=== PATIENT | female | born 1935 | race Caucasian/White ===

== ENCOUNTER 2017-01-26 10:10 | Inpatient (IN) | payer MEDICARE, BC ==
[~2017-01-26] VITALS: Ht 160 cm; Wt 54.2 kg
[~2017-01-26 10:10] MED LIST: CALC-126 PO; CHOL200040 PO; HYDR500C PO; LETR2.5T PO; LEVO88TA4 PO; MULT1TAB9 PO
[2017-01-26 11:30] VITALS: BP 107/71
[2017-01-26] MEDS ORDERED: FURO-93 PO (11:42)
[2017-01-26] MEDS ORDERED: HYDR500C3 PO (11:42)
[2017-01-26] MEDS ORDERED: HYDR-3138 PO (11:42)
[2017-01-26] MEDS ORDERED: HYDROmorphone 1 MG/ML, 1ML IM PRN (13:00)
[2017-01-26] MEDS ORDERED: POLYETHYLENE GLYCOL 17 GM PACKET PO PRN (13:00)
[2017-01-26] MEDS ORDERED: DOCUSATE 100 MG CAPSULE PO PRN (13:00)
[2017-01-26] MEDS ORDERED: ACETAMINOPHEN 325 MG TABLET PO PRN (13:00)
[2017-01-26] MEDS ORDERED: ONDANSETRON 2MG/ML, 2ML IVP PRN (13:00)
[2017-01-26 14:37] VITALS: BP 108/73
[2017-01-26] MEDS: HYDROcodone/APAP 5/325 TABLET PO PRN ×3 (15:20→22:31)
[2017-01-26] MEDS: HEPARIN 5,000 UNITS/ML, 1ML SQ SCH ×2 (15:20→23:57)
[2017-01-26] MEDS: [UNRECOGNIZED DRUG - REMARK] XX SCH ×2 (16:00→21:00)
[2017-01-26 16:27] LABS: ASPARTATE AMINO TRANSFERASE 34 U/L (15-37); BLOOD UREA NITROGEN 14 mg/dL (7-18)
[2017-01-26 16:58] LABS: ANISOCYTOSIS 1+
[2017-01-26 16:59] LABS: POLYCHROMASIA 1+
[2017-01-26] MEDS ORDERED: FUROSEMIDE 20 MG/2 ML IV ONE (17:30)
[2017-01-26] MEDS ORDERED: POTASSIUM CHLORIDE 20 MEQ TAB.ER.PRT PO ONE (17:30)
[2017-01-26 18:21] VITALS: BP 111/76
[2017-01-26] MEDS: DOXYCYCLINE 100MG TABLET PO SCH (21:18)
[2017-01-27 02:13] VITALS: BP 121/78
[2017-01-27] MEDS: HYDROcodone/APAP 5/325 TABLET PO PRN ×3 (05:15→18:41)
[2017-01-27 05:30] LABS: ASPARTATE AMINO TRANSFERASE 28 U/L (15-37); BLOOD UREA NITROGEN 12 mg/dL (7-18)
[2017-01-27 07:59] VITALS: BP 108/78
[2017-01-27] MEDS: HEPARIN 5,000 UNITS/ML, 1ML SQ SCH ×2 (08:44→17:13)
[2017-01-27] MEDS: DOXYCYCLINE 100MG TABLET PO SCH (08:44)
[2017-01-27] MEDS: LEVOTHYROXINE 88 MCG TABLET PO SCH (08:44)
[2017-01-27] MEDS: [UNRECOGNIZED DRUG - REMARK] XX SCH (08:44)
[2017-01-27] MEDS ORDERED: CALCIUM/VITAMIN D3 250-125 TABLET PO SCH (09:00)
[2017-01-27] MEDS ORDERED: HYDROXYUREA 200 MG HOMEMEDPO SCH (09:00)
[2017-01-27] MEDS ORDERED: MULTIVITAMINS/MINERALS TABLET PO SCH (09:00)
[2017-01-27] MEDS ORDERED: CHOLECALCIFEROL 1,000 UNIT TABLET PO SCH (09:00)
[2017-01-27] MEDS ORDERED: HYDROXYUREA 500 MG CAPSULE PO SCH (09:00)
[2017-01-27] MEDS ORDERED: FUROSEMIDE 20 MG/2 ML IV SCH (12:30)
[2017-01-27] MEDS: FUROSEMIDE 20 MG/2 ML IV SCH ×2 (12:41→22:07)
[2017-01-27] MEDS: DOXYCYCLINE 100 MG in DEXTROSE 5% 250 ML IV SCH (13:45)
[2017-01-27 13:50] VITALS: BP 108/73
[2017-01-27 18:29] VITALS: BP 105/74
[2017-01-27] MEDS: HYDROXYUREA 500 MG CAPSULE PO SCH (21:51)
[2017-01-28 00:44] VITALS: BP 93/66
[2017-01-28] MEDS: HYDROcodone/APAP 5/325 TABLET PO PRN ×4 (00:48→19:56)
[2017-01-28] MEDS: DOXYCYCLINE 100 MG in DEXTROSE 5% 250 ML IV SCH ×2 (00:48→13:07)
[2017-01-28] MEDS: HEPARIN 5,000 UNITS/ML, 1ML SQ SCH ×3 (00:48→17:38)
[2017-01-28 04:53] LABS: BLOOD UREA NITROGEN 9 mg/dL (7-18)
[2017-01-28 04:57] LABS: ASPARTATE AMINO TRANSFERASE 25 U/L (15-37)
[2017-01-28 05:33] LABS: DIFF TOTAL CELLS COUNTED 100 CELL DIFF
[2017-01-28 05:35] LABS: VERIFY COUNTS? YES
[2017-01-28 05:36] LABS: ANISOCYTOSIS 1+; POIKILOCYTOSIS 1+
[2017-01-28 07:39] VITALS: BP 105/74
[2017-01-28] MEDS: FUROSEMIDE 20 MG/2 ML IV SCH ×2 (09:02→19:56)
[2017-01-28] MEDS: POTASSIUM CHLORIDE 20 MEQ TAB.ER.PRT PO SCH ×2 (09:03→17:39)
[2017-01-28] MEDS: LEVOTHYROXINE 88 MCG TABLET PO SCH (09:03)
[2017-01-28] MEDS: HYDROXYUREA 500 MG CAPSULE PO SCH ×2 (10:18→22:05)
[2017-01-28 13:39] VITALS: BP 92/65
[2017-01-28] MEDS ORDERED: POTASSIUM CHLORIDE 20 MEQ TAB.ER.PRT PO SCH (17:00)
[2017-01-28 19:37] VITALS: BP 95/63
[2017-01-29] MEDS: DOXYCYCLINE 100 MG in DEXTROSE 5% 250 ML IV SCH ×3 (01:23→23:47)
[2017-01-29] MEDS: HEPARIN 5,000 UNITS/ML, 1ML SQ SCH ×4 (01:24→23:47)
[2017-01-29] MEDS: HYDROcodone/APAP 5/325 TABLET PO PRN ×3 (01:39→15:20)
[2017-01-29 03:28] VITALS: BP 114/76
[2017-01-29 05:24] LABS: ASPARTATE AMINO TRANSFERASE 24 U/L (15-37); BLOOD UREA NITROGEN 8 mg/dL (7-18)
[2017-01-29 05:35] LABS: DIFF TOTAL CELLS COUNTED 100 CELL DIFF
[2017-01-29 05:38] LABS: ANISOCYTOSIS 1+; VERIFY COUNTS? YES
[2017-01-29 05:39] LABS: POLYCHROMASIA 1+
[2017-01-29 07:03] VITALS: BP 116/80
[2017-01-29] MEDS: LEVOTHYROXINE 88 MCG TABLET PO SCH (08:31)
[2017-01-29] MEDS: POTASSIUM CHLORIDE 20 MEQ TAB.ER.PRT PO SCH ×2 (08:31→15:20)
[2017-01-29] MEDS: FUROSEMIDE 20 MG/2 ML IV SCH ×2 (08:31→19:56)
[2017-01-29] MEDS: HYDROXYUREA 500 MG CAPSULE PO SCH ×2 (10:34→19:54)
[2017-01-29 15:25] VITALS: BP 133/84
[2017-01-29 19:21] VITALS: BP 90/63
[2017-01-30 01:23] VITALS: BP 91/63
[2017-01-30 04:16] LABS: BLOOD UREA NITROGEN 11 mg/dL (7-18)
[2017-01-30 04:19] LABS: ASPARTATE AMINO TRANSFERASE 22 U/L (15-37)
[2017-01-30 04:40] LABS: DIFF TOTAL CELLS COUNTED 100 CELL DIFF
[2017-01-30 04:42] LABS: VERIFY COUNTS? YES
[2017-01-30 04:43] LABS: ANISOCYTOSIS 1+; HYPOCHROMIA 1+; POLYCHROMASIA 1+
[2017-01-30 07:22] VITALS: BP 98/66
[2017-01-30] MEDS: POTASSIUM CHLORIDE 20 MEQ TAB.ER.PRT PO SCH ×2 (08:28→17:44)
[2017-01-30] MEDS: LEVOTHYROXINE 88 MCG TABLET PO SCH (08:28)
[2017-01-30] MEDS: FUROSEMIDE 20 MG/2 ML IV SCH ×2 (08:29→18:58)
[2017-01-30] MEDS: HEPARIN 5,000 UNITS/ML, 1ML SQ SCH ×2 (08:29→17:44)
[2017-01-30] MEDS: HYDROXYUREA 500 MG CAPSULE PO SCH ×2 (12:10→22:08)
[2017-01-30] MEDS: DOXYCYCLINE 100 MG in DEXTROSE 5% 250 ML IV SCH (13:57)
[2017-01-30 14:27] VITALS: BP 71/49
[2017-01-30 15:00] VITALS: BP 86/60
[2017-01-30] MEDS: HYDROcodone/APAP 5/325 TABLET PO PRN (17:44)
[2017-01-30 19:39] VITALS: BP 92/64
[2017-01-31] MEDS: DOXYCYCLINE 100 MG in DEXTROSE 5% 250 ML IV SCH ×2 (01:35→15:05)
[2017-01-31] MEDS: HEPARIN 5,000 UNITS/ML, 1ML SQ SCH ×3 (01:43→18:19)
[2017-01-31 01:48] VITALS: BP 102/72
[2017-01-31] MEDS ORDERED: CATHFLO-ALTEPLASE 2 MG/2 ML CATHFLUSH ONE (04:00)
[2017-01-31 05:14] LABS: BLOOD UREA NITROGEN 12 mg/dL (7-18)
[2017-01-31 06:02] LABS: DIFF TOTAL CELLS COUNTED 100 CELL DIFF
[2017-01-31 06:05] LABS: ANISOCYTOSIS 1+; VERIFY COUNTS? YES
[2017-01-31] MEDS ORDERED: MAGNESIUM SULFATE PMX 2GM/50ML 50 ML IV ONE (07:30)
[2017-01-31 07:45] VITALS: BP 117/75
[2017-01-31] MEDS: FUROSEMIDE 20 MG/2 ML IV SCH ×2 (11:03→20:12)
[2017-01-31] MEDS: POTASSIUM CHLORIDE 20 MEQ TAB.ER.PRT PO SCH ×2 (11:03→18:19)
[2017-01-31] MEDS: LEVOTHYROXINE 88 MCG TABLET PO SCH (11:03)
[2017-01-31] MEDS: HYDROXYUREA 500 MG CAPSULE PO SCH ×2 (11:05→21:23)
[2017-01-31 13:20] VITALS: BP 99/67
[2017-01-31] MEDS ORDERED: KETOROLAC 30 MG/1 ML IM STA (14:13)
[2017-01-31] MEDS: HYDROcodone/APAP 5/325 TABLET PO PRN (14:18)
[2017-01-31 18:54] VITALS: BP 91/61
[2017-02-01 01:24] VITALS: BP 108/73
[2017-02-01] MEDS: DOXYCYCLINE 100 MG in DEXTROSE 5% 250 ML IV SCH ×2 (01:47→13:50)
[2017-02-01] MEDS: HEPARIN 5,000 UNITS/ML, 1ML SQ SCH ×3 (01:51→17:13)
[2017-02-01 06:36] LABS: BLOOD UREA NITROGEN 11 mg/dL (7-18)
[2017-02-01 07:15] VITALS: BP 109/70
[2017-02-01] MEDS: FUROSEMIDE 20 MG/2 ML IV SCH ×2 (08:28→21:36)
[2017-02-01] MEDS: POTASSIUM CHLORIDE 20 MEQ TAB.ER.PRT PO SCH ×2 (08:28→17:13)
[2017-02-01] MEDS: LEVOTHYROXINE 88 MCG TABLET PO SCH (08:28)
[2017-02-01] MEDS: HYDROXYUREA 500 MG CAPSULE PO SCH ×2 (08:32→21:39)
[2017-02-01 14:20] VITALS: BP 106/74
[2017-02-01 19:41] VITALS: BP 105/74
[2017-02-02 01:03] VITALS: BP 90/64
[2017-02-02] MEDS: HEPARIN 5,000 UNITS/ML, 1ML SQ SCH ×3 (01:12→17:17)
[2017-02-02] MEDS: DOXYCYCLINE 100 MG in DEXTROSE 5% 250 ML IV SCH (01:12)
[2017-02-02 06:17] LABS: BLOOD UREA NITROGEN 14 mg/dL (7-18)
[2017-02-02 07:53] VITALS: BP 109/76
[2017-02-02] MEDS: LEVOTHYROXINE 88 MCG TABLET PO SCH (08:23)
[2017-02-02] MEDS: FUROSEMIDE 20 MG/2 ML IV SCH ×2 (08:23→20:10)
[2017-02-02] MEDS: POTASSIUM CHLORIDE 20 MEQ TAB.ER.PRT PO SCH ×2 (08:23→17:17)
[2017-02-02] MEDS: HYDROXYUREA 500 MG CAPSULE PO SCH ×2 (08:26→20:14)
[2017-02-02 13:17] VITALS: BP 101/66
[2017-02-02] MEDS: DOXYCYCLINE 100MG TABLET PO SCH (13:28)
[2017-02-02] MEDS ORDERED: DOXY100T PO (14:21)
[2017-02-02] MEDS ORDERED: FURO-93 PO (14:21)
[2017-02-02 20:16] VITALS: BP 100/68
[2017-02-03] MEDS: HEPARIN 5,000 UNITS/ML, 1ML SQ SCH ×2 (00:29→09:27)
[2017-02-03] MEDS: DOXYCYCLINE 100MG TABLET PO SCH (00:29)
[2017-02-03 02:41] VITALS: BP 113/79
[2017-02-03 07:08] VITALS: BP 111/78
[2017-02-03] MEDS: LEVOTHYROXINE 88 MCG TABLET PO SCH (08:03)
[2017-02-03] MEDS: POTASSIUM CHLORIDE 20 MEQ TAB.ER.PRT PO SCH (08:03)
[2017-02-03] MEDS: HYDROXYUREA 500 MG CAPSULE PO SCH (08:05)
[2017-02-03] MEDS: FUROSEMIDE 20 MG/2 ML IV SCH (08:05)
== END 2017-02-03 13:47 | disposition home health service (06) | DRG 291 ==
LOC: 5SO 10:44 → 3NW 01-30 15:40
PROVIDERS: ADMIT Internal Medicine; ATTEND Internal Medicine
PROC: 02HV33Z Insertion of Infusion Device into Superior Vena Cava, Percutaneous Approach (ICD-10-PCS; principal; 2017-01-26)
PROC: B548ZZA Ultrasonography of Superior Vena Cava, Guidance (ICD-10-PCS; 2017-01-26)
PROC: 0HBRXZZ Excision of Toe Nail, External Approach (ICD-10-PCS; 2017-01-27)
PROC: 0HBRXZZ Excision of Toe Nail, External Approach (ICD-10-PCS; 2017-01-27)
PROC: 0HBRXZZ Excision of Toe Nail, External Approach (ICD-10-PCS; 2017-01-27)
PROC: 0HBRXZZ Excision of Toe Nail, External Approach (ICD-10-PCS; 2017-01-27)
PROC: 0HBRXZZ Excision of Toe Nail, External Approach (ICD-10-PCS; 2017-01-27)
PROC: 0HBRXZZ Excision of Toe Nail, External Approach (ICD-10-PCS; 2017-01-27)
PROC: 0HBRXZZ Excision of Toe Nail, External Approach (ICD-10-PCS; 2017-01-27)
PROC: 0HBRXZZ Excision of Toe Nail, External Approach (ICD-10-PCS; 2017-01-27)
PROC: 0HBRXZZ Excision of Toe Nail, External Approach (ICD-10-PCS; 2017-01-27)
PROC: 0HBRXZZ Excision of Toe Nail, External Approach (ICD-10-PCS; 2017-01-27)
DX: I50.33 Acute on chronic diastolic (congestive) heart failure (principal); E43 Unspecified severe protein-calorie malnutrition; C78.7 Secondary malignant neoplasm of liver and intrahepatic bile duct; C79.51 Secondary malignant neoplasm of bone; C91.10 Chronic lymphocytic leukemia of B-cell type not having achieved remission; L03.115 Cellulitis of right lower limb; L03.116 Cellulitis of left lower limb; C50.919 Malignant neoplasm of unspecified site of unspecified female breast; D47.3 Essential (hemorrhagic) thrombocythemia; M81.0 Age-related osteoporosis without current pathological fracture; B35.1 Tinea unguium; E03.9 Hypothyroidism, unspecified; E87.6 Hypokalemia; I73.9 Peripheral vascular disease, unspecified; I89.0 Lymphedema, not elsewhere classified; R62.7 Adult failure to thrive; S81.801A Unspecified open wound, right lower leg, initial encounter; W19.XXXA Unspecified fall, initial encounter; Z66 Do not resuscitate; Y93.89 Activity, other specified; Y92.89 Other specified places as the place of occurrence of the external cause; Y99.8 Other external cause status; Z80.3 Family history of malignant neoplasm of breast; Z80.42 Family history of malignant neoplasm of prostate; Z80.8 Family history of malignant neoplasm of other organs or systems; Z87.891 Personal history of nicotine dependence; Z68.22 Body mass index [BMI] 22.0-22.9, adult; Z90.11 Acquired absence of right breast and nipple; Z90.722 Acquired absence of ovaries, bilateral; Z88.5 Allergy status to narcotic agent; Z88.2 Allergy status to sulfonamides; Z88.8 Allergy status to other drugs, medicaments and biological substances; Z88.1 Allergy status to other antibiotic agents; Z91.041 Radiographic dye allergy status; Z79.899 Other long term (current) drug therapy
CPT/HCPCS: 36415; 36569; 76937; 77001; 80048; 80053; 83735; 85025; 87070; 87205; J1170; J1644; J1885; J2405; J2997; J7060; C1751; J1940; J3475

== ENCOUNTER 2019-05-03 21:48 | Inpatient (IN) | payer MEDICARE, BC ==
[~2019-05-03] VITALS: Ht 157.5 cm; Wt 61.7 kg
[~2019-05-03 21:48] MED LIST changes: +DOXY100T PO; +FURO-93 PO; +HYDR-3237 PO; +HYDR500C3 PO
--- NOTE | 2019-05-03 23:15 | NUR ---
LABS DRAWN, ABG DRAWN. BLOOD CULTURES DRAWN, ONE DRAWN OFF PICC PER ERP OKAY. PT RESTING CALMLY IN BED AT THIS TIME. NO COMPLAINTS CURRENTLY. FAMILY AT BEDSIDE. PT REMAINS ON OPTIFLOW AT CHARTED SETTINGS. ABLE TO UPDATE PT MED REC. WILL CONTINUE TO MONITOR. BILAT BEDRAILS UP.
[2019-05-03 23:19] LABS: MEAN CORPUSCULAR HEMOGLOBIN 36.7 pg (27.0-34.8); MEAN CORPUSCULAR HGB CONC 32.7 g/dL (32.4-35.8); MEAN CORPUSCULAR VOLUME 112.1 fL (80-100); MEAN PLATELET VOLUME 7.1 fL (7.4-10.4); PLATELET COUNT 430 x10^3/uL (130-400); RED BLOOD COUNT 3.23 x10^6/uL (3.82-5.3); RED CELL DISTRIBUTION WIDTH 17.7 % (9.6-15.2)
[2019-05-03] MEDS ORDERED: NOREPINEPHRINE 4 MG in SODIUM CHLORIDE 0.9% 246 ML IV PRN (23:30)
[2019-05-03 23:33] LABS: ALBUMIN 1.7 g/dL (3.4-5.0); ANION GAP 10 mmol/L (5-15); CALCIUM 7.6 mg/dL (8.5-10.1); CHLORIDE 112 mmol/L (98-107)
[2019-05-03 23:37] LABS: ALKALINE PHOSPHATASE 399 U/L (45-117); TOTAL PROTEIN 5.5 g/dL (6.4-8.2); TROPONIN I 0.034 ng/mL (0.000-0.045)
[2019-05-03 23:38] LABS: ALANINE AMINOTRANSFERASE 101 U/L (12-78)
[2019-05-04] LABS: BASOPHILS # (AUTO) 0.06 x10^3/uL (0-0.1); BASOPHILS % (AUTO) 0 % (0-1); EOSINOPHILS # (AUTO) 0.01 x10^3/uL (0-0.4); EOSINOPHILS % (AUTO) 0 % (1-7); LYMPHOCYTES % (AUTO) 27 % (22-44); MD SCAN; MONOCYTES # (AUTO) 1.08 x10^3/uL (0.2-0.8); MONOCYTES % (AUTO) 4 % (2-9); NEUTROPHILS # (AUTO) 20.63 x10^3/uL (1.8-6.8); NEUTROPHILS % (AUTO) 69 % (42-75)
[2019-05-04] MEDS ORDERED: OMNIPAQUE 350 MG/ML, 100ML BOTTLE ONE (00:38)
--- NOTE | 2019-05-04 00:49 | NUR ---
PT BACK FROM CT. TOLERATED WELL. PT RESTING CALMLY IN BED AT THIS TIME. NO STATED NEEDS. BILAT BEDRAILS UP. PT BP STABLE ON ORDERED PRESSOR, SEE CHARTED. WILL CONTINUE TO MONITOR.
--- NOTE | 2019-05-04 01:42 | NUR ---
PT RESTING CALMLY IN BED, SEE CHARTED VITALS. NO STATED NEEDS AT THIS TIME. ERP HAS UPDATED PT AND FAMILY WITH CT RESULTS AND PLAN
--- NOTE | 2019-05-04 02:18 | NUR ---
AWAITING HOSPITALIST ORDERS. PT RESTING CALMLY IN BED DOZING OFF AND ON. WOUND CARE DONE ON LEFT WRIST SKIN TEAR. NO C/O PAIN. RT HAS BEEN IN TO CHECK ON PT. PT REPOSITIONED FOR COMFORT. WILL CONTINUE TO MONITOR.
--- NOTE | 2019-05-04 02:30 | NUR ---
HOSPITALIST AT BEDSIDE
--- NOTE | 2019-05-04 03:15 | NUR ---
REPORT TO JOSE MILLER.
[2019-05-04 03:30] VITALS: BP 82/52
[2019-05-04 04:24] VITALS: BP 88/50
[2019-05-04 04:49] LABS: MICROSCOPIC NOT IND
[2019-05-04 04:53] LABS: CULTURE INDICATED? NO
[2019-05-04] MEDS ORDERED: ACETAMINOPHEN 325 MG TABLET PO PRN (05:30)
[2019-05-04] MEDS ORDERED: BISACODYL 10 MG SUPP PR PRN (05:30)
[2019-05-04] MEDS ORDERED: ZOSYN PER PHARMACY MC PRN (05:30)
[2019-05-04] MEDS ORDERED: ONDANSETRON 2MG/ML, 2ML IVPush PRN (05:30)
[2019-05-04] MEDS ORDERED: VANCOMYCIN PER PHARMACY MC PRN (05:30)
[2019-05-04] MEDS ORDERED: POLYETHYLENE GLYCOL 17 GM PACKET PO PRN (05:30)
[2019-05-04] MEDS ORDERED: HYDROmorphone 2 MG/ML, 1ML IVPush PRN (05:30)
[2019-05-04] MEDS ORDERED: PANTOPRAZOLE 40 MG IV ONE (05:45)
[2019-05-04] MEDS: PANTOPRAZOLE 40 MG IV IV SCH (05:48)
[2019-05-04] MEDS: VANCOMYCIN 1,200 MG in SODIUM CHLORIDE 0.9% 250 ML IV SCH (06:13)
[2019-05-04] MEDS ORDERED: PHARMACOKINETIC MONITORING MC PRN (06:30)
[2019-05-04] MEDS ORDERED: [UNRECOGNIZED DRUG - REMARK] MC SCH (07:00)
[2019-05-04] MEDS: NOREPINEPHRINE 4 MG in SODIUM CHLORIDE 0.9% 246 ML IV PRN ×4 (07:31→22:09)
[2019-05-04] MEDS: SENNA/DOCUSATE TABLET PO SCH (09:00)
[2019-05-04] MEDS ORDERED: ALBUTEROL SULFATE 2.5 MG/3 ML NPPB PRN (10:30)
[2019-05-04] MEDS: PIPERACILLIN/TAZO/PMX 3.375GM 50 ML IV SCH ×3 (10:45→22:37)
[2019-05-04] MEDS: LEVOTHYROXINE 100 MCG TABLET PO SCH (10:45)
[2019-05-04] MEDS ORDERED: ALBUMIN HUMAN 5% 500 ML IV ONE (12:00)
[2019-05-04] MEDS ORDERED: LIDOCAINE-MPF 1%, 5ML ONE (12:49)
[2019-05-04] MEDS ORDERED: MOXIFLOXACIN OPHTH O.5%, 3ML RIGHTEYE SCH (21:00)
[2019-05-04] MEDS ORDERED: ERYTHROMYCIN OPHTH 0.5%, 1GM RIGHTEYE SCH (21:00)
[2019-05-05] MEDS: NOREPINEPHRINE 4 MG in SODIUM CHLORIDE 0.9% 246 ML IV PRN (02:05)
[2019-05-05] MEDS: PANTOPRAZOLE 40 MG IV IV SCH (04:49)
[2019-05-05] MEDS: PIPERACILLIN/TAZO/PMX 3.375GM 50 ML IV SCH ×4 (04:50→22:27)
[2019-05-05 05:00] LABS: MEAN CORPUSCULAR HEMOGLOBIN 36.4 pg (27.0-34.8); MEAN CORPUSCULAR HGB CONC 32.5 g/dL (32.4-35.8); MEAN CORPUSCULAR VOLUME 111.8 fL (80-100); MEAN PLATELET VOLUME 6.7 fL (7.4-10.4); PLATELET COUNT 444 x10^3/uL (130-400); RED BLOOD COUNT 3.03 x10^6/uL (3.82-5.3); RED CELL DISTRIBUTION WIDTH 17.1 % (9.6-15.2)
[2019-05-05 05:13] LABS: ALBUMIN 1.8 g/dL (3.4-5.0); ANION GAP 8 mmol/L (5-15); CALCIUM 6.3 mg/dL (8.5-10.1); CHLORIDE 121 mmol/L (98-107)
[2019-05-05 05:16] LABS: ALANINE AMINOTRANSFERASE 75 U/L (12-78); ALKALINE PHOSPHATASE 281 U/L (45-117); BILIRUBIN,TOTAL 2.1 mg/dL (0.2-1.0); CREATININE 0.91 mg/dL (0.55-1.02); TOTAL PROTEIN 4.7 g/dL (6.4-8.2)
[2019-05-05] MEDS: ERYTHROMYCIN OPHTH 0.5%, 1GM RIGHTEYE SCH ×4 (05:24→21:00)
[2019-05-05] MEDS: MOXIFLOXACIN OPHTH O.5%, 3ML RIGHTEYE SCH ×4 (05:25→21:52)
[2019-05-05] MEDS: VANCOMYCIN 1,200 MG in SODIUM CHLORIDE 0.9% 250 ML IV SCH (05:25)
[2019-05-05] MEDS: NOREPINEPHRINE 8 MG in SODIUM CHLORIDE 0.9% 242 ML IV PRN ×4 (05:28→23:07)
[2019-05-05 05:36] LABS: BASOPHILS # (AUTO) 0.03 x10^3/uL (0-0.1); BASOPHILS % (AUTO) 0 % (0-1); EOSINOPHILS # (AUTO) 0.07 x10^3/uL (0-0.4); EOSINOPHILS % (AUTO) 0 % (1-7); LYMPHOCYTES # (AUTO) 7.23 x10^3/uL (1-3.4); LYMPHOCYTES % (AUTO) 33 % (22-44); MD SCAN; MONOCYTES # (AUTO) 0.66 x10^3/uL (0.2-0.8); MONOCYTES % (AUTO) 3 % (2-9); NEUTROPHILS # (AUTO) 14.05 x10^3/uL (1.8-6.8); NEUTROPHILS % (AUTO) 64 % (42-75)
[2019-05-05] MEDS ORDERED: MAGNESIUM SULFATE PMX 2GM/50ML 50 ML IV ONE (07:00)
[2019-05-05] MEDS ORDERED: LIDOCAINE-MPF 1%, 5ML ONE (08:06)
[2019-05-05] MEDS: SENNA/DOCUSATE TABLET PO SCH (09:00)
[2019-05-05] MEDS ORDERED: VASOPRESSIN 100 UNIT in SODIUM CHLORIDE 0.9% 495 ML IV PRN (09:30)
[2019-05-05 10:22] LABS: CELLS COUNTED 354
[2019-05-05] MEDS ORDERED: LEVOTHYROXINE 50 MCG TABLET ONE (11:03)
[2019-05-05] MEDS: LEVOTHYROXINE 100 MCG TABLET PO SCH (11:04)
[2019-05-05 18:38] LABS: CLOSTRIDIUM DIFFICILE ANTIGEN POSITIVE; CLOSTRIDIUM DIFFICILE TOXIN NEGATIVE (Negative)
[2019-05-05 18:48] LABS: OCCULT BLOOD POSITIVE (NEGATIVE)
[2019-05-05 20:24] LABS: STOOL FOR LEUKOCYTES NONE SEEN (NEGATIVE)
[2019-05-05 23:28] LABS: OCCULT BLOOD POSITIVE (NEGATIVE)
[2019-05-06] MEDS: NOREPINEPHRINE 8 MG in SODIUM CHLORIDE 0.9% 242 ML IV PRN (04:19)
[2019-05-06] MEDS: PIPERACILLIN/TAZO/PMX 3.375GM 50 ML IV SCH ×4 (04:26→23:06)
[2019-05-06 04:45] LABS: MEAN CORPUSCULAR HEMOGLOBIN 36.3 pg (27.0-34.8); MEAN CORPUSCULAR HGB CONC 32.5 g/dL (32.4-35.8); MEAN CORPUSCULAR VOLUME 111.8 fL (80-100); PLATELET COUNT 519 x10^3/uL (130-400); RED BLOOD COUNT 3.23 x10^6/uL (3.82-5.3); RED CELL DISTRIBUTION WIDTH 17.2 % (9.6-15.2)
[2019-05-06 04:55] LABS: ANION GAP 9 mmol/L (5-15); CALCIUM 6.8 mg/dL (8.5-10.1); CHLORIDE 112 mmol/L (98-107)
[2019-05-06 04:56] LABS: CREATININE 1.17 mg/dL (0.55-1.02)
[2019-05-06] MEDS: PANTOPRAZOLE 40 MG IV IV SCH (05:26)
[2019-05-06] MEDS: ERYTHROMYCIN OPHTH 0.5%, 1GM RIGHTEYE SCH ×3 (05:27→21:03)
[2019-05-06 05:28] LABS: MD YES
[2019-05-06 05:30] LABS: <PLATELET ESTIMATE> INCREASED; <PLT MORPHOLOGY> NORMAL PLT MORPH; ANISOCYTOSIS 1+; BAND#(MANUAL) 2.91 x10^3/uL; BANDS%(MANUAL) 10 % (0-7); EOS#(MANUAL) 0.58 x10^3/uL (0.0-0.4); EOS% (MANUAL) 2 % (1-7); LYMPH#(MANUAL) 10.19 x10^3/uL (1-3.4); LYMPHS% (MANUAL) 35 % (22-44); MONOS#(MANUAL) 0.29 x10^3/uL (0.3-2.7); MONOS% (MANUAL) 1 % (2-9); SEG#(MANUAL) 15.13 x10^3/uL (1.8-6.8); SEGS% (MANUAL) 52 % (42-75)
[2019-05-06] MEDS: MOXIFLOXACIN OPHTH O.5%, 3ML RIGHTEYE SCH ×4 (05:59→20:30)
[2019-05-06] MEDS ORDERED: ALBUMIN HUMAN 25% 100 ML IV SCH (07:00)
[2019-05-06] MEDS ORDERED: CALCIUM CHLORIDE 13.6 MEQ in SODIUM CHLORIDE 0.9% 100 ML IV ONE (07:00)
[2019-05-06] MEDS: SENNA/DOCUSATE TABLET PO SCH (09:00)
[2019-05-06] MEDS ORDERED: NOREPINEPHRINE 16 MG in SODIUM CHLORIDE 0.9% 234 ML IV PRN (09:41)
[2019-05-06] MEDS: LEVOTHYROXINE 100 MCG TABLET PO SCH (11:20)
[2019-05-06] MEDS: VANCOMYCIN 50 MG/ML ORAL SUSP PO SCH ×4 (11:21→22:36)
[2019-05-06] MEDS ORDERED: MORPHINE 30MG/30ML PCA.SYR IV PRN (15:00)
[2019-05-06] MEDS ORDERED: LORazepam 2 MG/ML, 1ML IV PRN ×2 (15:00→15:30)
[2019-05-06] MEDS ORDERED: ATROPINE OPHTH SOLN 1%, 2ML PO PRN (15:00)
[2019-05-06] MEDS ORDERED: LORazepam 2 MG/ML, 1ML IV ONE (15:00)
[2019-05-06] MEDS ORDERED: ALBUTEROL SULFATE 2.5 MG/3 ML NPPB PRN (16:30)
[2019-05-06] MEDS ORDERED: ONDANSETRON 2MG/ML, 2ML IVPush PRN (16:30)
[2019-05-06] MEDS ORDERED: HYDROmorphone 2 MG/ML, 1ML IVPush PRN (16:30)
[2019-05-06] MEDS ORDERED: BISACODYL 10 MG SUPP PR PRN (16:30)
[2019-05-06] MEDS ORDERED: ACETAMINOPHEN 325 MG TABLET PO PRN (16:30)
[2019-05-06] MEDS ORDERED: ZOSYN PER PHARMACY MC PRN (16:30)
[2019-05-06] MEDS ORDERED: POLYETHYLENE GLYCOL 17 GM PACKET PO PRN (16:30)
[2019-05-06] MEDS ORDERED: VASOPRESSIN 100 UNIT in SODIUM CHLORIDE 0.9% 495 ML IV PRN (16:30)
[2019-05-06] MEDS: NOREPINEPHRINE 4 MG in SODIUM CHLORIDE 0.9% 246 ML IV PRN (20:17)
[2019-05-06] MEDS ORDERED: PHENYLEPHRINE 20 MG in SODIUM CHLORIDE 0.9% 248 ML IV PRN (23:00)
[2019-05-07] MEDS: PHENYLEPHRINE 40 MG in SODIUM CHLORIDE 0.9% 246 ML IV PRN ×2 (01:14→06:25)
[2019-05-07] MEDS: VANCOMYCIN 50 MG/ML ORAL SUSP PO SCH ×4 (04:46→22:41)
[2019-05-07] MEDS: PIPERACILLIN/TAZO/PMX 3.375GM 50 ML IV SCH ×4 (04:47→22:43)
[2019-05-07] MEDS ORDERED: LEVOTHYROXINE 50 MCG TABLET ONE (05:11)
[2019-05-07] MEDS: MOXIFLOXACIN OPHTH O.5%, 3ML RIGHTEYE SCH ×4 (05:34→20:16)
[2019-05-07] MEDS: LEVOTHYROXINE 100 MCG TABLET PO SCH (05:35)
[2019-05-07] MEDS: ERYTHROMYCIN OPHTH 0.5%, 1GM RIGHTEYE SCH ×4 (05:59→21:05)
[2019-05-07] MEDS: NOREPINEPHRINE 4 MG in SODIUM CHLORIDE 0.9% 246 ML IV PRN (06:28)
[2019-05-07] MEDS: SENNA/DOCUSATE TABLET PO SCH (08:26)
[2019-05-07] MEDS: ESOMEPRAZOLE 40 MG IV IVPush SCH (08:27)
[2019-05-07] MEDS ORDERED: LORazepam 2 MG/ML, 1ML IVPush PRN (13:00)
[2019-05-07] MEDS: NOREPINEPHRINE 8 MG in SODIUM CHLORIDE 0.9% 242 ML IV PRN (23:31)
[2019-05-08] MEDS: VANCOMYCIN 50 MG/ML ORAL SUSP PO SCH ×3 (04:39→16:30)
[2019-05-08] MEDS: NOREPINEPHRINE 8 MG in SODIUM CHLORIDE 0.9% 242 ML IV PRN ×2 (04:39→11:07)
[2019-05-08] MEDS: PIPERACILLIN/TAZO/PMX 3.375GM 50 ML IV SCH ×3 (04:39→17:00)
[2019-05-08] MEDS ORDERED: LEVOTHYROXINE 50 MCG TABLET ONE (05:49)
[2019-05-08] MEDS: LEVOTHYROXINE 100 MCG TABLET PO SCH (05:58)
[2019-05-08] MEDS: MOXIFLOXACIN OPHTH O.5%, 3ML RIGHTEYE SCH ×3 (05:59→16:00)
[2019-05-08] MEDS: ERYTHROMYCIN OPHTH 0.5%, 1GM RIGHTEYE SCH ×4 (06:00→19:46)
[2019-05-08] MEDS ORDERED: MORPHINE SULFATE 4 MG/ML, 1ML IVPush PRN (09:00)
[2019-05-08] MEDS: ESOMEPRAZOLE 40 MG IV IVPush SCH (09:00)
[2019-05-08] MEDS: SENNA/DOCUSATE TABLET PO SCH (09:00)
[2019-05-08] MEDS ORDERED: LORazepam 2 MG/ML, 1ML IV PRN (19:00)
[2019-05-08] MEDS ORDERED: ATROPINE OPHTH SOLN 1%, 2ML PO PRN (19:00)
[2019-05-09] MEDS: ERYTHROMYCIN OPHTH 0.5%, 1GM RIGHTEYE SCH ×3 (06:00→15:30)
== END 2019-05-09 22:30 | disposition expired | DRG 871 ==
LOC: ED 22:43 → EDIP 05-04 00:51 → CCU 05-04 03:25 → ICU 05-05 09:52 → 3NW 05-08 18:14
PROVIDERS: ADMIT Family Medicine; ATTEND Family Medicine
PROC: 0W9G3ZZ Drainage of Peritoneal Cavity, Percutaneous Approach (ICD-10-PCS; principal; 2019-05-04)
PROC: 0W9B30Z Drainage of Left Pleural Cavity with Drainage Device, Percutaneous Approach (ICD-10-PCS; 2019-05-04)
PROC: 0W9B30Z Drainage of Left Pleural Cavity with Drainage Device, Percutaneous Approach (ICD-10-PCS; 2019-05-05)
DX: A41.9 Sepsis, unspecified organism (principal); J15.9 Unspecified bacterial pneumonia; E43 Unspecified severe protein-calorie malnutrition; J96.21 Acute and chronic respiratory failure with hypoxia; R65.21 Severe sepsis with septic shock; C78.7 Secondary malignant neoplasm of liver and intrahepatic bile duct; C79.51 Secondary malignant neoplasm of bone; C91.10 Chronic lymphocytic leukemia of B-cell type not having achieved remission; I50.40 Unspecified combined systolic (congestive) and diastolic (congestive) heart failure; J98.11 Atelectasis; M48.54XA Collapsed vertebra, not elsewhere classified, thoracic region, initial encounter for fracture; N17.9 Acute kidney failure, unspecified; R18.0 Malignant ascites; C50.919 Malignant neoplasm of unspecified site of unspecified female breast; D47.3 Essential (hemorrhagic) thrombocythemia; G62.9 Polyneuropathy, unspecified; H54.61 Unqualified visual loss, right eye, normal vision left eye; K70.30 Alcoholic cirrhosis of liver without ascites; I89.0 Lymphedema, not elsewhere classified; I95.0 Idiopathic hypotension; K72.90 Hepatic failure, unspecified without coma; Z51.5 Encounter for palliative care; Z66 Do not resuscitate; Z85.3 Personal history of malignant neoplasm of breast; Z68.24 Body mass index [BMI] 24.0-24.9, adult; Z87.891 Personal history of nicotine dependence; Z90.10 Acquired absence of unspecified breast and nipple; Z99.81 Dependence on supplemental oxygen
CPT/HCPCS: 32555; 36415; 36600; 49083; 71045; 71275; 74018; 74177; 80048; 80053; 81003; 82042; 82272; 82330; 82803; 83605; 83615; 83735; 83986; 84100; 84145; 84484; 85025; 87040; 87046; 87070; 87081; 87205; 87324; 87427; 87493; 88112; 88305; 88341; 88342; 89051; 89055; 93005; 93306; 93970; 96365; 96366; G0378; J2270; J2543; J3370; P9045; P9047; Q9967; C9113; J2060; J2370; J3475; J7040; J7050